=== PATIENT | female | born 1955 | race Caucasian/White ===

== ENCOUNTER 2023-12-09 17:58 | Inpatient (IN) | payer OTHER, SELFPAY ==
[2023-12-09] VITALS (8 sets, daily range): BP systolic 136–168; BP diastolic 74–103; BMI 29.7
[2023-12-09 13:58] LABS: % Basophils 0.6 % (0-2); % Eosinophils 1.5 % (0-6); % Immature Granulocytes 0.3 % (0-0.5); % Lymphocytes 14.5 % (20.5-51.1); % Monocytes 7.8 % (1.7-9.3); % Neutrophils 75.3 % (42.2-75.2); Absolute Basophils 0.1 10^3/uL (0-0.2); Absolute Eosinophils 0.2 10^3/uL (0-0.7); Absolute Lymphocytes 1.5 10^3/uL (1.2-3.4); Absolute Monocytes 0.8 10^3/uL (0.1-0.6); Absolute Neutrophils 7.7 10^3/uL (1.4-6.5); Hemoglobin 14.3 g/dL (12.0-16.0); Mean Corp Hgb Conc. 33.3 g/dL (33.0-37.0); Mean Corpuscular Hgb 31.2 pg (27.0-31.0); Mean Corpuscular Volume 93.7 fL (81.0-99.0); Mean Platelet Volume 10.4 fL (7.4-10.4); Nucleated Red Blood Cells % 0 %; Platelet Count 211 10^3/uL (130-400); Red Blood Cell Count 4.59 10^6/uL (4.20-5.40); Red Cell Dist. Width 13.5 % (11.5-14.5); White Blood Cell Count 10.3 10^3/uL (4.8-10.8)
[2023-12-09 14:14] LABS: ALT (SGPT) 23 U/L (0-35); AST (SGOT) 24 U/L (14-36); Albumin 4.5 g/dl (3.5-5.0); Alkaline Phosphatase 69 U/L (38-126); Blood Urea Nitrogen 23 mg/dl (7-17); Calcium 10.5 mg/dl (8.4-10.2); Carbon Dioxide 27 mmol/L (22-30); Chloride 106 mmol/L (98-107); Glucose 97 mg/dl (70-99); Potassium 4.3 mmol/L (3.5-5.1); Sodium 141 mmol/L (135-145); Total Bilirubin 0.4 mg/dl (0.2-1.3); Total Protein 7.3 g/dl (6.3-8.2); eGFR > 60.00
[2023-12-09 14:30] LABS: NT-proBNP 306 pg/ml; Troponin I 0.158 ng/ml
--- NOTE | 2023-12-09 14:52 | ED.GENMED ---
History of Present Illness
General
Chief Complaint: Breathing Problem
Source: patient and spouse
Exam Limitations: none
Time Seen by Provider: 12/09/23 14:52
Nursing documentation reviewed up to this point in time: agreed with
History of Present Illness
History of Present Illness:
68-year-old female presents emergency room after sudden shortness of breath this afternoon. She is visiting from [place]. She used her inhaler but it did not help. She denies any chest pain.
Past History
Past History
ED Past Medical History: Asthma and Other (Irritable bowel)
ED Past Surgical History: , Orthopedic (Right knee arthroscopic, right rotator cuff) and Other ([place] teeth)
Social History
Tobacco: Non-smoker
Alcohol: None
Drug: None
Personal:
Living: with family
Review of Systems
Review of Systems
Allergies reviewed?: Yes
All Other Systems: Not applicable
Constitutional: Reports no symptoms
EENT: Reports no symptoms
Respiratory: Reports trouble breathing
Cardiac: Reports no symptoms; Denies chest pain
ABD/GI: Reports no symptoms
: Reports no symptoms
Musculoskeletal: Reports no symptoms
Skin: Reports no symptoms
Neurological: Reports no symptoms
Endocrine: Reports no symptoms
Hematologic/Lymphatic: Reports no symptoms
Psychiatric: Reports no symptoms
Phy Exam
Physical Exam
Physical Exam:
Physical Exam
General: Afebrile
Neck: supple. no meningeal signs. normal posterior pharynx
Heart: s1/s2 tachycardia, no murmur. equal radial
pulses.
HEENT: Pupils equal round reactive to light, EOMI
Lungs: no acute respiratory distress. clear bilaterally
Abdomen: normal bowel sounds. not tender. no CVAT
Neuro: alert and oriented. no focal neurological deficits cranial nerves II through XII intact
Skin: no rash
Psychiatric: well kept. interactive and cooperative
Extremities: no edema. no calf tenderness. negative homans. good distal pulses
Scores
Heart Failure Risk
Heart Failure Risk Score: Not Applicable
Course
Orders/Labs/Results
Orders:
Orders
12/09/23 12:46
Electrocardiogram (*1) Urgent
Reason for Study: Shortness of Breath
EKG- Treatment ONCE
12/09/23 13:14
CR Chest - 2 Views Urgent
Comment:
Reason For Exam: SOB
12/09/23 13:45
Complete Blood Count/With Diff Urgent
Comprehensive Metabolic Panel Urgent
NT-proBNP Urgent
Troponin I Urgent
12/09/23 15:21
Cardiac Monitoring- Treatment ONCE
IV Insert/Care/Rem.- Treatment PRN
12/09/23 15:22
CT Chest Pe Study Urgent
Comment:
Reason For Exam: short of breath, troponin mild elevation
12/09/23 15:48
D-Dimer Urgent
PTT Urgent
Comment: PTT ADDED ON 5PM 12-09-23
12/09/23 16:38
Heparin 6,900 units IV NOW STA
Nursing to Place Non Medication Order As Directed
Physician Order: PTT 6 hours after initial start of Heparin infusion
Above order entered?: Yes
12/09/23 16:45
Heparin 97607 Units/250 ml 25,000 units in 250 ml IV PER PROTOCOL
Weight to be used for heparin protocol in kilograms (kg):: 86
Protocol:: DVT/PE
PTT Goal Range to be used:: PTT 73 to 111 seconds
Order type:: Initial
INITIAL Infusion Dose (UNITS/KG/hr) & then follow protocol:: 18 units/kg/hr
Infusion Dose in UNITS/hr & then follow protocol (UNITS/hr):: 1,500
INFUSION RATE in mL/hr & then follow protocol (mL/hr):: 15
For DVT/PE algorithm, re-bolus for low PTT?: Yes
PTT less than or equal to 64 seconds:: Re-bolus 80 units/kg (max 10,000units). Increase by 300 units/hr
(+ 3mL/hr)
PTT 64.1 to 72.9 seconds:: Re-bolus 40 units/kg (max 5,000 units). Increase by 200 units/hr
(+ 2mL/hr)
PTT 73 to 111 seconds:: Target Range. No change in rate.
PTT 111.1 to 130.9 seconds:: Decrease rate by 200 units/hr (- 2 mL/hr)
PTT 131 to 199.9 seconds:: HOLD for 1 hr. Then decrease by 300 units/hr (- 3mL/hr)
PTT greater than or equal to 200 seconds:: HOLD for 2 hrs & Notify Provider. Then decrease by 300 units/hr
(- 3mL/hr)
Lab follow-up:: Each change, PTT q6h until 2 consecutive are therapeutic. Then
PTT daily.
12/09/23 16:58
Add On- LAB Urgent
Tests Added?: PTT
12/09/23 17:25
Admit/Transfer Patient As Directed
Co-Sign Provider:
Level of Care: Inpatient admission
Assign to:: IMU- Intermediate Care
Physician / Group: [facility]
Diagnosis: PE
Reason for Hospitalization: PE
Expected length of stay greater than two midnights?: Yes
ELOS- Estimated Length of Stay in days: 2
I certify the patient meets the requirements for IP care: Yes
PRN Pain Medication Management As Directed
May give lesser potent ordered pain med per pt: Yes
preference::
Protocol:: Medication orders for pain may be administered in a
manner that supports deferring to patient preference
when the pt is:
- Requesting an ordered lesser potent pain medication.
Least to most potent pain medications are defined
as: acetaminophen < NSAID < tramadol < opioids
(morphine, oxycodone, hydromorphone).
- Requesting a lesser dose of the same medication IF
ORDERED.
- Requesting a less intrusive route of administration
if both routes are prescribed by the provider (PO <
IV).
12/09/23 17:26
Code Status As Directed
Resuscitation Status: Full Code
12/09/23 17:31
Heparin 6,900 units IV PRN PRN
12/09/23 17:32
Heparin 3,400 units IV PRN PRN
12/09/23 23:40
PTT Urgent
Comment: Heparin GTT
Abnormal Lab Results
12/09/23 12/09/23
13:45 15:48
MCH 31.2 H pg
(27.0-31.0)
Absolute Neuts (auto) 7.7 H 10^3/uL
(1.4-6.5)
Absolute Monos (auto) 0.8 H 10^3/uL
(0.1-0.6)
Neutrophils % 75.3 H %
(42.2-75.2)
Lymphocytes % 14.5 L %
(20.5-51.1)
D-Dimer 4.68 H ug/mlFEU
(0.00-0.50)
BUN 23 H mg/dl
(7-17)
Calcium 10.5 H mg/dl
(8.4-10.2)
Troponin I 0.158 H* ng/ml
12/09/23 13:45
12/09/23 13:45
Vital Signs
Initial and Last Documented VS:
Initial Vital Signs
Temp Pulse Resp BP Pulse Ox
97.5 F 122 20 168/93 95
12/09/23 12:46 12/09/23 12:46 12/09/23 12:46 12/09/23 12:46 12/09/23 12:46
Last Documented Vital Signs
Temp Pulse Resp BP Pulse Ox
97.5 F 102 26 136/83 98
12/09/23 12:46 12/09/23 19:00 12/09/23 19:00 12/09/23 18:00 12/09/23 19:00
MDM/Problems Addressed
Differential Diagnosis Includes:
Pulmonary embolism, ACS
MDM/Problems Addressed:
68-year-old female with bilateral PE, right heart strain. Vital signs stable. IV heparin given. Admit to hospitalist, ICU. PERT alert called.
Chronic conditions affecting care: Asthma
*Radiology
Radiology exam reviewed: preliminary read by ED provider (CT chest shows bilateral PE)
*Pulse Oximetry
Patient hypoxic: no
*EKG
Interpreted by ED Provider?: Yes
EKG Intrepretation Date: 12/09/23
EKG Intrepretation Time: 12:57
Interpretation: abnormal
Comparison EKG: no comparison EKG present
Heart Rate: 103
Rate: tachycardiac
Rhythm: PVC's and sinus arrhythmia
[place]: normal axis
Interval: normal interval
QRS Pattern: normal QRS
Ischemia: no ischemia
*Medical Oncology Physician Interpretation
Rate: tachycardiac
Interpretation: abnormal
Heart Rate: 105
Rhythm: PVC's and sinus tachycardia
*Critical Care Note
Total Time (30-74mins, 75-104mins- exclusive of procedures): 30
comment:
Critical care statement: A total of 30 minutes of critical care time was provided for this patient. This includes management of unstable vital signs, evaluation of the patient at bedside, reviewing the patient's pertinent medical records, discussion
with consultants, review of old EKGs and review of pertinent medical records. This time with separate from time utilized to perform the aforementioned documented procedures
Data Reviewed
Prescriptions/Medications Considered But Not Given:
Thrombolysis considered, not indicated at this time
Patient Management
Discussion with other providers: Hospitalist and Lap Checker (Pulmonology, Dr. Noe)
Escalation/DeEscalation of care consider admission/obs:
Admit to ICU indicated
ED Attending Note
-
Portions of this chart may have been created with voice recognition software.� Occasional wrong word or��sound alike� substitutions may have occurred due to the inherent limitations of voice recognition software.
Discharge Plan
Departure
Patient Disposition: Admit
Date of Disposition: 12/09/23
Time of Disposition: 17:03
Admit to: ICU
Presentation/result/management discussed w/ accepting MD/DO: Hospitalist
Patient with high blood pressure during this ER visit?: Yes
Condition: Fair
Discharge Problem:
Bilateral pulmonary embolism
Interventions
Interventions:
*Risk Screen - Suicide Last Done: 12/09/23 12:48
*General Assessment Last Done: 12/09/23 16:15
*Neglect/Abuse Screening Last Done: 12/09/23 12:48
*ED COVID-19 Vaccine History Last Done: 12/09/23 16:15
ED- Cardiac Assessment Last Done: 12/09/23 17:50
ED- Pulmonary Assessment Last Done: 12/09/23 17:51
[2023-12-09 16:19] LABS: D-Dimer 4.68 ug/mlFEU (0.00-0.50)
[2023-12-09 17:09] LABS: APTT 26.4 Sec (23.4-35.0)
--- NOTE | 2023-12-09 17:28 | HPS.HSE ---
Family Physician
-
Family Physician: * NONE
Chief Complaint
-
shortness of breath
History of Present Illness
68-year-old female past medical history hiatal hernia, asthma, spinal stenosis, presenting with shortness of breath for the past few days. She was riding her bike and could not write due to shortness of breath. She did feel little bit dizzy.
Denies chest pain or back pain. She felt some cramping in her right leg over the past few days.
Patient is from [place] and recently drove down from there this past . They did stop and take breaks on the journey. She got her COVID vaccination last week. No recent surgeries or COVID infection. No prior history of blood clots.
No family history of blood clots but sister did have a stroke.
She drinks alcohol occasionally. Denies smoking.
Medical History
Past Medical History
Past Medical History: Reports Other (hiatal hernia, asthma, spinal stenosis, )
Past Surgical History: Reports Other (knee surgery, hernia surgery, rotator cuff surgery, C section )
Social History
Tobacco: Non-smoker
Alcohol: None
Drug: None
Family History
Family History: Not pertinent
Allergies / Home Medications
Allergies reflects when Allergies were last updated in [facility].
Home Medications with original date entered in [facility]
Allergy/Medication List:
Allergies
Allergy/AdvReac Type Severity Reaction Status Date / Time
Penicillins Allergy Rash Verified 12/09/23 12:46
Sulfa (Sulfonamide Allergy Swelling Verified 12/09/23 12:46
Antibiotics)
Home Medications
Glucosamine Chondroitin 2 tab PO DAILY 12/09/23
beclomethasone dipropionate 80 mcg/actuation HFA breath activated aerosol (Qvar RediHaler) 2 inh inhalation R BID 12/09/23
calcium 600 mg (as carbonate)-vit D3 20 mcg (800 unit) chewable tablet (Caltrate plus D) 2 tab PO HS 12/09/23
cholecalciferol (vitamin D3) 25 mcg (1,000 unit) tablet 50 mcg PO HS 12/09/23
cyanocobalamin (vitamin B-12) 1,000 mcg tablet 1,000 mcg PO HS 12/09/23
fluticasone propionate 50 mcg/actuation nasal spray,suspension 1 spray intranasal BID 12/09/23
gabapentin 300 mg capsule 300 mg PO HS 12/09/23
hyoscyamine sulfate 0.125 mg sublingual tablet 0.125 mg PO HS 12/09/23
levothyroxine 137 mcg tablet (Synthroid) 137 mcg PO DAILY 12/09/23
omeprazole 40 mg capsule,delayed release 40 mg PO DAILY 12/09/23
Review of Systems
-
History Source: Patient
A 12 point ROS was completed and negative except as noted: Yes
Constitutional: Reports No Symptoms
EENT: Reports No Symptoms
Respiratory: Reports See HPI
Cardiac: Reports No Symptoms
Abdomen/GI: Reports No Symptoms
: Reports No Symptoms
Musculoskeletal: Reports No Symptoms
Skin: Reports No Symptoms
Neurological: Reports No Symptoms
Endocrine: Reports No Symptoms
Hematologic/Lymphatic: Reports No Symptoms
Psych: Reports No Symptoms
Physical Exam
Vital Signs
Vital Signs
Temp Pulse Resp BP Pulse Ox
97.5 F 97 12 151/103 98
12/09/23 12:46 12/09/23 16:00 12/09/23 16:00 12/09/23 14:49 12/09/23 16:00
Physical Exam
General: Well Developed, Well Nourished and No Apparent Distress
HEENT: NormoCephalic, Moist mucous membranes and Atraumatic
Respiratory: Clear
Cardiac: S1/S2 and Regular Rhythm; No Murmur or Rub
GI: Soft, Non Tender, Non Distended and Normal Bowel Sounds; No Organomegaly
Rectal: Deferred by Provider
Musculoskeletal: No Clubbing, No Cyanosis and No Edema
Skin: No Rash
Neuro: Nonfocal/grossly intact
Laboratory Results
-
12/09/23 13:45
12/09/23 13:45
Laboratory Results
APTT Cancelled 12/09/23 16:38
Total Bilirubin 0.4 mg/dl (0.2-1.3) 12/09/23 13:45
AST 24 U/L (14-36) 12/09/23 13:45
ALT 23 U/L (0-35) 12/09/23 13:45
Alkaline Phosphatase 69 U/L (38-126) 12/09/23 13:45
Troponin I 0.158 ng/ml H* 12/09/23 13:45
Data Reviewed
-
Lab Data: Labs Reviewed by me
Old Records: Reviewed
Impression/Plan
-
IMPRESSION:
PLAN:
# Unprovoked bilateral pulmonary embolism
# Troponin elevation likely secondary to right heart strain
-Troponin of 0.158
-EKG shows sinus tachycardia
-No chest pain
-Heparin drip
-Check venous ultrasound
-Check echo
-Pulmonary consulted
-Outpatient hematology workup
Spinal stenosis
-Continue gabapentin
Hiatal hernia/GERD
-Continue omeprazole
Asthma
Hypothyroidism
-Continue levothyroxine
Full code
DVT prophylaxis-heparin drip
Regular diet
[2023-12-09] MEDS: HEPARIN 6900 UNITS IV (17:34)
[2023-12-09] MEDS: HEPARIN 25000 UNITS/250 ML IV (17:37)
[2023-12-09 21:06] LABS: Troponin I 0.486 ng/ml
[2023-12-09] MEDS: VITAMIN D3 (cholecalciferol) 50 MCG PO (22:30)
[2023-12-09] MEDS: LEVSIN 0.125 MG PO (22:30)
[2023-12-09] MEDS: OSCAL CAL 500 500 MG PO (22:30)
[2023-12-09] MEDS: NEURONTIN 300 MG PO (22:30)
[2023-12-09] MEDS: VITAMIN B-12 1000 MCG PO (22:31)
[2023-12-10] VITALS (17 sets, daily range): BP systolic 125–154; BP diastolic 69–96; BMI 27.9
[2023-12-10 01:02] LABS: APTT 183.3 Sec (23.4-35.0)
[2023-12-10 02:53] LABS: Troponin I 0.423 ng/ml
[2023-12-10 06:39] LABS: APTT 121.2 Sec (23.4-35.0)
[2023-12-10 06:47] LABS: % Basophils 0.6 % (0-2); % Immature Granulocytes 0.3 % (0-0.5); % Lymphocytes 42.5 % (20.5-51.1); % Monocytes 8.7 % (1.7-9.3); % Neutrophils 43.9 % (42.2-75.2); ALT (SGPT) 20 U/L (0-35); AST (SGOT) 23 U/L (14-36); Absolute Eosinophils 0.3 10^3/uL (0-0.7); Absolute Lymphocytes 2.8 10^3/uL (1.2-3.4); Absolute Monocytes 0.6 10^3/uL (0.1-0.6); Absolute Neutrophils 2.9 10^3/uL (1.4-6.5); Alkaline Phosphatase 71 U/L (38-126); Blood Urea Nitrogen 14 mg/dl (7-17); Calcium 9.7 mg/dl (8.4-10.2); Carbon Dioxide 24 mmol/L (22-30); Chloride 108 mmol/L (98-107); Estimated Creatinine Clearance 85 ml/min; Glucose 105 mg/dl (70-99); Hematocrit 41.4 % (37.0-47.0); Hemoglobin 13.5 g/dL (12.0-16.0); Mean Corp Hgb Conc. 32.6 g/dL (33.0-37.0); Mean Corpuscular Hgb 30.5 pg (27.0-31.0); Mean Corpuscular Volume 93.5 fL (81.0-99.0); Mean Platelet Volume 10.9 fL (7.4-10.4); Nucleated Red Blood Cells % 0 %; Platelet Count 212 10^3/uL (130-400); Potassium 4.3 mmol/L (3.5-5.1); Red Blood Cell Count 4.43 10^6/uL (4.20-5.40); Red Cell Dist. Width 13.7 % (11.5-14.5); Sodium 142 mmol/L (135-145); Total Bilirubin 0.5 mg/dl (0.2-1.3); Total Protein 6.7 g/dl (6.3-8.2); White Blood Cell Count 6.6 10^3/uL (4.8-10.8); eGFR > 60.00
[2023-12-10] MEDS: SYNTHROID 137 MCG PO (07:08)
[2023-12-10] MEDS: PROTONIX 40 MG PO (07:33)
--- NOTE | 2023-12-10 09:57 | CON.PUL ---
Consultation
Consultation Request
Date/Time Consultation Requested: 12/10/2023-7 AM
Date/Time Consultation Performed: 12/10/2023-7:30 AM
Requesting Provider: Hospitalist
Performing Provider: Dr. Noe
Reason for Consultation: Pulmonary embolism
Medical History
-
Chief Complaint: Shortness of breath
History of Present Illness:
68-year-old female with a history of mild intermittent asthma, spinal stenosis, irritable bowel, hiatal hernia who presented with shortness of breath and noted to have moderate bilateral pulmonary emboli-pulmonary was consulted for pulmonary emboli
12/10/2023. Patient states that she recently drove down from [place] and stopped every 3 hours for a break. She did receive her COVID vaccine booster last week .she states that her had COVID about a week ago and she never turned
positive. Her shortness of breath which is unusual for her actually started 5 days previous when she noticed she was having more shortness of breath while climbing stairs. She was not sedentary, she does not have a previous history of clotting,
hypercoagulable state or family history. She has not had miscarriages. She noticed that she was more short of breath than usual. She is normally very active. She was recently in [facility] and biking 18 miles a day [place] minimally using
her e-bike. She denies any chest pain, pleurisy, and only complains of shortness of breath with exertion. She did not complain of any abdominal pain, nausea, vomiting, leg swelling, however, she did complain of some pulled muscle right calf felt
related to yoga
Past Medical History
Past Medical History: None (Asthma-mild intermittent. Spinal stenosis. Hiatal hernia. Knee surgery. Hernia surgery. Rotator cuff surgery. .)
Social History
Tobacco: Non-smoker
Alcohol: None
Drug: None
Personal:
Living: With Family
Occupational Exposures: No known asbestos exposure
Environmental Exposures: No known tuberculosis exposure
Family History
Family History: Other (No family history of hypercoagulable state)
Allergies / Home Medications
Allergies
Allergy/AdvReac Type Severity Reaction Status Date / Time
Penicillins Allergy Rash Verified 12/09/23 12:46
Sulfa (Sulfonamide Allergy Swelling Verified 12/09/23 12:46
Antibiotics)
Home Medications
�Medication �Instructions �Recorded �Confirmed �Last Taken �Type
Glucosamine Chondroitin 2 tab PO DAILY 12/09/23 12/09/23 12/09/23 History
beclomethasone dipropionate 80 2 inh inhalation R BID 12/09/23 12/09/23 12/09/23 History
mcg/actuation HFA breath activated
aerosol (Qvar RediHaler)
calcium 600 mg (as carbonate)-vit 2 tab PO HS 12/09/23 12/09/23 12/08/23 History
D3 20 mcg (800 unit) chewable
tablet (Caltrate plus D)
cholecalciferol (vitamin D3) 25 50 mcg PO HS 12/09/23 12/09/23 12/08/23 History
mcg (1,000 unit) tablet
cyanocobalamin (vitamin B-12) 1,000 mcg PO HS 12/09/23 12/09/23 12/08/23 History
1,000 mcg tablet
fluticasone propionate 50 1 spray intranasal BID 12/09/23 12/09/23 12/09/23 History
mcg/actuation nasal
spray,suspension
gabapentin 300 mg capsule 300 mg PO HS 12/09/23 12/09/23 12/08/23 History
hyoscyamine sulfate 0.125 mg 0.125 mg PO HS 12/09/23 12/09/23 12/08/23 History
sublingual tablet
levothyroxine 137 mcg tablet 137 mcg PO DAILY 12/09/23 12/09/23 12/09/23 History
(Synthroid)
omeprazole 40 mg capsule,delayed 40 mg PO DAILY 12/09/23 12/09/23 12/09/23 History
release
Review of Systems
-
Unable to Obtain full review of systems at this time due to: Other (Per HPI)
Vitals / Labs / Diagnostic Testing
Vital Signs
Temp Pulse Resp BP Pulse Ox
97.5 F 99 16 145/96 100
12/09/23 12:46 12/10/23 08:45 12/10/23 08:45 12/10/23 08:00 12/10/23 08:45
Lab Data
12/10/23 05:59
12/10/23 05:59
Laboratory Results
12/09/23 12/09/23 12/10/23
15:48 16:38 00:26
APTT 26.4 Cancelled 183.3 H*
12/10/23
05:59
APTT 121.2 H
Diagnostic Testing:
Physical Exam
-
Exam:
Well-nourished and well-developed in no apparent distress
HEENT-atraumatic, normocephalic
Neck-supple, no JVD, no bruit
Heart-regular rate and rhythm-no murmurs, rubs or gallops, no increased P2, no RV heave
Chest-clear to auscultation, no wheezes, crackles
Back-no tenderness
Abdomen-soft, nontender, nondistended, no hepatosplenomegaly
Extremities-no cyanosis, clubbing, edema and good peripheral pulses, negative Homans' sign
Integument-intact, no rashes, lesions or ecchymosis
Neurology-alert and oriented, nonfocal motor and sensory exam
Assessment
-
68-year-old female with a history of mild intermittent asthma, spinal stenosis, irritable bowel, hiatal hernia who presented with shortness of breath and noted to have moderate bilateral pulmonary emboli-pulmonary was consulted for pulmonary emboli
12/10/2023.
Pulmonary embolism-unprovoked bilateral moderate clot burden with some right ventricular strain
PESI-66-low risk
Troponin 0.158, D-dimer 4.68, proBNP 306, heart rate 90s sinus rhythm, no hypotension
DVT-right lower extremity-acute
Conditions present prior to admission:
Asthma-mild intermittent.
Spinal stenosis.
Hiatal hernia.
Knee surgery. Hernia surgery. Rotator cuff surgery. .
Plan
Patient will be admitted to telemetry unit for close observation
Supplemental oxygen as needed
Aspiration precautions
Incentive spirometry
CT chest personally reviewed-summarized below
Check echocardiogram
Lower extremity ultrasound with right lower extremity DVT
Recommend eventual hypercoagulable workup
Full PESI I summarized above
Heparin drip or Lovenox 1 mg/kg every 12 hours
Convert to oral anticoagulant and treat for minimum of 3-6 months
Benefits and risks of thrombolytics therapy were reviewed with patient
Patient has mild tachycardia and no hypotension-currently risks of aggressive thrombolytic therapy outweigh [id number] notified of options, reasons for conservative standard of care therapy and is in agreement
Bedrest �24 hours
DVT prophylaxis-on full anticoagulation
Early nutrition
Early mobilization
Outpatient pulmonary follow-up in [place] recommended-told patient will need hypercoagulable workup as well as repeat imaging-told her to contact radiology department and have images/report burned on disc
Outpatient appropriate malignancy screening
Critical care statement: A total of 55 minutes of critical care time was provided for this patient today. This includes management of unstable vital signs, evaluation for thrombolytic therapy, management of large pulmonary embolism, evaluation of
the patient at bedside, reviewing the patient's pertinent medical records including radiographs, microbiology, laboratory evaluations, and discussion with primary team, consultants, pharmacy, and critical care nursing.
Diagnostic data:
Chest x-ray 12/09/2023-NAD
CT chest 12/09/2023-moderate extensive bilateral pulmonary emboli distal right main pulmonary artery extending into the right upper lobe, right lower lobe and right middle lobe, some right ventricular strain minimal airspace disease in the right
middle lobe
Lower extremity ultrasound 12/09/2023-acute occlusive DVT right peroneal vein
Data Reviewed
-
EKG: Report reviewed by me
Radiology: Image personally visualized and interpreted and Report reviewed by me
CT Scan: Image personally visualized and interpreted and Report reviewed by me
Ultrasound: Report reviewed by me
Medical Tests (Nuc Med, Echo etc): Report reviewed by me
Labs: Labs reviewed by me
Old Records: Reviewed
Total Time Spent with Patient (in minutes): 55
[2023-12-10 12:36] LABS: Troponin I 0.196 ng/ml
[2023-12-10 14:11] LABS: APTT 38.6 Sec (23.4-35.0)
--- NOTE | 2023-12-10 15:51 | W.PN.HOSP.TC ---
Today's Communication/Plan
-
continue full dose Heparin
Assessment / Plan
Assessment / Plan
# Unprovoked bilateral pulmonary embolism
was dx with Covid on 10/23. Pt had runny nose with nasal congestion several days later, but tested negative for Covid herself at that time.
CT scan of chest: There is pulmonary embolism in the distal aspect of the right main pulmonary artery extending into right upper lobe, right lower lobe and right middle lobe branches
There is pulmonary embolism in the distal aspect of the left main pulmonary artery extending into left upper lobe and left lower lobe branches
There is a bandlike area of central embolism extending across the main pulmonary artery.
There is right heart strain with an RV/LV ratio of 4.8/3.8
There is an azygos lobe on the right
There is minimal parenchymal airspace disease in the right middle lobe
The lungs are otherwise clear
# Troponin elevation likely secondary to right heart strain
-Troponin of 0.158
-EKG shows sinus tachycardia
-No chest pain
-Heparin drip
-venous ultrasound: ACUTE OCCLUSIVE DEEP VENOUS THROMBOSIS in the RIGHT PERONEAL VEIN.
-Check echo
-Pulmonary input appreciated
-Outpatient hematology workup when returns to [place]
Spinal stenosis
-Continue gabapentin
Hx of asthma
currently no symptoms
Hiatal hernia/GERD
-Continue omeprazole
Asthma
Hypothyroidism
-Continue levothyroxine
Full code
DVT prophylaxis-heparin drip
transition to Eliquis next 24 hrs
Regular diet
Anticipated Discharge: 24 - 48 hours
Subjective/Interval History
-
Date of Service: December 10, 2023
No sob at rest
Objective Data
-
Labs:
Laboratory Results
12/10/23 12/10/23 12/10/23
05:59 13:39 16:30
WBC 6.6
Hgb 13.5
Hct 41.4
Plt Count 212
APTT 121.2 H 38.6 H Pending
Sodium 142
Potassium 4.3
Chloride 108 H
Carbon Dioxide 24
BUN 14
Creatinine 0.7
Glucose 105 H
Calcium 9.7
Total Bilirubin 0.5
AST 23
ALT 20
Alkaline Phosphatase 71
Vital Signs:
Vital Signs
Temp Pulse Resp BP Pulse Ox
97.5 F 90 16 154/81 97
12/09/23 12:46 12/10/23 15:30 12/10/23 15:30 12/10/23 14:00 12/10/23 15:30
Review of Systems
-
History Source: Patient and Coordinated Provider
Constitutional: Denies Fever
EENT: Reports No Symptoms Reported
Respiratory: Reports Trouble Breathing (with exertion)
Cardiac: Reports No Symptoms; Denies Chest Pain
Abdomen/GI: Reports No Symptoms
Genitourinary: Reports No Symptoms
Physical Exam
-
General: Well Developed, Well Nourished and No Apparent Distress
HEENT: Normocephalic, Atraumatic and Moist Mucous Membranes
Respiratory: Clear to Auscultation (mild splinting) and Rales (atelectatic rales on deep inspiration); Negative Wheezes or Rhonchi
Cardiac: Regular Rhythm and S1/S2
GI: Soft, Nontender and Nondistended
Musculoskeletal: No Clubbing, No Cyanosis and No Edema
Skin: Dry
--- NOTE | 2023-12-10 15:54 | PTCARENOTE ---
Pt's 1340 PTT came back at 38.6. RN in room to talk to pt. Pt's IV Pump alarmed a lot in the past 6 hours. RN educated pt on the need to tell Nursing the pump is alarming because it means the Heparin is not infusing. Pt was unaware that's what
the alarm meant. RN spoke to Mar and Pharmacy regarding above issue. MD and Pharmacy agreed to keep Heparin at current rate and redraw PTT 3 hours from the last level and run the protocol off of that result. Pt explained on all above. Will
continue to monitor.
[2023-12-10 17:02] LABS: APTT 75.4 Sec (23.4-35.0)
[2023-12-10] MEDS: HEPARIN 25000 UNITS/250 ML IV (17:23)
--- NOTE | 2023-12-10 19:00 | EDRN ---
Report received, introduced myself to patient, gave patient meal tray, resting comfortably with call andrade in reach at this time, at bedside
--- NOTE | 2023-12-10 20:13 | EDRN ---
Patient completed her meal, respiratory here to do her inhaler.
--- NOTE | 2023-12-10 21:40 | PTCARENOTE ---
Rec'd pt from ER via stretcher, hep gtt at 1000units/hr, oriented x 3, amb to bed, CHG bath done, SR, bp stable, + pulses, denies pain, RA, lungs clear, sat 97, + bowel sounds, no bm, abd soft, no n/v, voided in ER before she came up
--- NOTE | 2023-12-10 21:46 | EDRN ---
Report called to BRYCE Brandon in ICU
[2023-12-10] MEDS: OSCAL CAL 500 500 MG PO (22:16)
[2023-12-10] MEDS: VITAMIN D3 (cholecalciferol) 50 MCG PO (22:16)
[2023-12-10] MEDS: NEURONTIN 300 MG PO (22:16)
[2023-12-10] MEDS: VITAMIN B-12 1000 MCG PO (22:16)
[2023-12-10 22:41] LABS: APTT 45.5 Sec (23.4-35.0)
[2023-12-10 22:52] LABS: Blood Urea Nitrogen 18 mg/dl (7-17); Calcium 9.5 mg/dl (8.4-10.2); Carbon Dioxide 24 mmol/L (22-30); Chloride 107 mmol/L (98-107); Estimated Creatinine Clearance 67 ml/min; Glucose 111 mg/dl (70-99); Potassium 4.4 mmol/L (3.5-5.1); Sodium 140 mmol/L (135-145); eGFR > 60.00
[2023-12-10] MEDS: HEPARIN 6900 UNITS IV (23:06)
--- NOTE | 2023-12-10 23:10 | PTCARENOTE ---
ptt 45.5, bolused per order & hep gtt incr to 1300 units per protocal
[2023-12-10] MEDS: LEVSIN 0.125 MG PO (23:53)
[2023-12-11] VITALS: BP 133/79
[2023-12-11 01:00] VITALS: BP 128/76
[2023-12-11 02:00] VITALS: BP 125/68
[2023-12-11 03:00] VITALS: BP 133/77
[2023-12-11 04:00] VITALS: BP 129/79
[2023-12-11 04:58] VITALS: BMI 27.8
[2023-12-11 05:11] LABS: Hematocrit 41.5 % (37.0-47.0); Hemoglobin 13.9 g/dL (12.0-16.0); Mean Corp Hgb Conc. 33.5 g/dL (33.0-37.0); Mean Corpuscular Hgb 31.7 pg (27.0-31.0); Mean Corpuscular Volume 94.5 fL (81.0-99.0); Mean Platelet Volume 10.7 fL (7.4-10.4); Platelet Count 200 10^3/uL (130-400); Red Blood Cell Count 4.39 10^6/uL (4.20-5.40); Red Cell Dist. Width 13.5 % (11.5-14.5); White Blood Cell Count 6.2 10^3/uL (4.8-10.8)
[2023-12-11] MEDS: SYNTHROID 137 MCG PO (05:19)
--- NOTE | 2023-12-11 05:50 | PTCARENOTE ---
PTT > 200, heparin off per protocal for 2 hr, Marycruz Trinidad, [employer]UTIONS ARCHITECT aware
[2023-12-11 05:51] LABS: APTT > 200 Sec (23.4-35.0)
[2023-12-11] MEDS: PROTONIX 40 MG PO (07:42)
--- NOTE | 2023-12-11 07:45 | W.PN.HOSP.TC ---
Addendum entered and electronically signed by Dayna Alexis MD 12/11/23 17:28:
I saw and evaluated the patient independently. I reviewed the resident�s note and agree with findings and plan as documented by Dr. Payne.
GENERAL: well developed, well nourished, female in no apparent distress
HEENT: NC/AT--no O2 requirements
HEART: regular rate and rhythm, +S1, +S2
LUNGS : clear to auscultation bilaterally
ABDOM: soft, nontender, nondistended, + bowel sounds
EXT: no cyanosis, clubbing, or edema
NEUROLOGIC: grossly intact
Bilateral pulmonary embolism with DVT in right peroneal vein--likely provoked by recent travel from [place] but pt says she had symptoms in retrospect of SOB and calf pain (thinking she pulled a muscle)--heparin drip transitioned to
Eliquis--some troponin leak from mild right heart strain--ECHO with dilated and hypocontractile right ventricle--did not qualify for lytic therapy- Dr. Payne will fax DC summary to PCP Dr. Milana Avelar. Patient plans to call tomorrow or following
day to schedule appointment.
Elevated troponin--due to nonischemic myocardial injury--due to bilateral PE--downtrending troponin--
Shortness of breath on admission- resolved--due to PE most likely but pt does have asthma history--SOB began prior to recent travel--Continue home inhalers as prior to admission. Continue PE management as above.
Spinal stenosis-Continue home gabapentin
Hiatal hernia/GERD--Continue omeprazole
Hypothyroidism--Continue levothyroxine
dvt proph--heparin drip to Eliquis
Code status-- Full code
Original Note:
Today's Communication/Plan
-
Transition from heparin to eliquis, stable for discharge home today pending echo results
Assessment / Plan
Assessment / Plan
68yo F with PMH of asthma who presented to ED 12/09/23 for shortness of breath. She recently drove from [place] to visit family in [place]; she drove 4 hour segment, then took a break for lunch/overnight stay, then drove 2.5 hour segment. Prior to travel, she
reports some exertional dyspnea while packing for trip. Her asthma inhaler did not relieve symptoms. She also notes Covid exposure at beginning of October with several days of nasal congestion, but her covid test was negative.
A/P:
Bilateral pulmonary embolism
Venous thrombosis of right peroneal vein
- Chest CT significant for bilateral PE, venous US significant for acute VTE of R peroneal vein
- Unclear if this was provoked VTE secondary to recent travel vs unprovoked VTE.
- Has been on heparin infusion. Will transition to eliquis 10mg BID x1 week followed by 5mg BID. Will send script on discharge to local [place] pharmacy. Reviewed plan with patient and importance of following up with PCP for medication refills in [place].
- Case management consulted regarding eliquis pricing for patient.
- VSS, no tachychardia. Asymptomatic. Stable for discharge home with outpatient PCP and outpatient hematology follow up when patient returns home to [place].
- Reviewed ambulation recommendations and taking breaks from driving to walk and stretch.
- I will fax DC summary to PCP Dr. Milana Avelar. Patient plans to call tomorrow or following day to schedule appointment.
Elevated troponin
- Troponin downtrended from 0.48 on admission --> 0.42 --> 0.19
- EKG with sinus tachycardia initially
- No chest pain. Shortness of breath resolving
- Suspect elevated troponin was from right heart strain secondary to bilateral PE
- Will obtain echo today
Shortness of breath on admission- resolved
History of asthma
- SOB began prior to recent travel. Unclear etiology- may be related to PE vs asthma vs seasonal allergies.
- Continue home inhalers as prior to admission. Continue PE management as above.
Spinal stenosis
-Continue home gabapentin
Hiatal hernia/GERD
-Continue omeprazole
Hypothyroidism
-Continue levothyroxine
Code status: Full
VTE ppx: Ambulation as tolerated, transition from heparin to eliquis
Diet: Regular
Dispo planning: Anticipate home today pending echo results
Anticipated Discharge: Today
Subjective/Interval History
-
Date of Service: December 11, 2023
No acute events overnight. Only complaint is poor sleep quality in hospital. The shortness of breath she experienced prior to admission has resolved. She denies lightheadedness, dizziness, chest pain, shortness of breath, nausea, vomiting, diarrhea,
constipation. Last BM yesterday, no black or bloody stools. She is tolerating PO diet, no difficulty/pain with swallowing. She is ambulating without assistance as she was prior to admission. She feels well overall and hopes to be discharged today.
Objective Data
-
Labs:
Laboratory Results
12/10/23 12/11/23 12/11/23
22:22 04:58 14:00
WBC 6.2
Hgb 13.9
Hct 41.5
Plt Count 200
PT 13.0
INR 1.00
APTT 45.5 H > 200 H* Pending
Sodium 140
Potassium 4.4
Chloride 107
Carbon Dioxide 24
BUN 18 H
Creatinine 0.9
Glucose 111 H
Calcium 9.5
Vital Signs:
Vital Signs
Temp Pulse Resp BP Pulse Ox
98 F 75 15 129/79 94
12/10/23 22:00 12/11/23 04:00 12/11/23 04:00 12/11/23 04:00 12/11/23 03:56
I&O
12/10/23 12/11/23 12/12/23
06:59 06:59 06:59
Intake Total 1621 / 1621
Balance 1621 / 1621
Review of Systems
-
History Source: Patient
All other systems: Not reviewed unless documented
Physical Exam
-
General: Well Developed, Well Nourished, No Apparent Distress, Comfortable and Conversant
HEENT: Normocephalic and Atraumatic
Respiratory: Clear to Auscultation and Non Labored Respirations; Negative Wheezes
Cardiac: Regular Rhythm and S1/S2
GI: Soft, Nontender, Nondistended and Normal Bowel Sounds
Musculoskeletal: Edema, Right Lower Extrem (mild nonpitting edema just proximal to ankle on right side)
Skin: Warm and Dry
Neuro: Awake, Alert, Oriented and Nonfocal/Grossly Intact
Psych: Calm and Intact Judgement/Insight
Data Reviewed
-
Diagnostic Radiology: Image personally visualized and interpreted and Report Reviewed by me
CT Scan: Image personally visualized and interpreted and Report Reviewed by me
Ultrasound: Report Reviewed by me
Labs: Labs Reviewed by me and Discussed with Physician
--- NOTE | 2023-12-11 08:28 | W.PN.INTV ---
Today's Communication / Plan
Recommendations
Systemic anticoagulation with heparin drip with transition to NOAC today preferably with Eliquis
Case management assistance to assure that Eliquis is affordable
Outpatient hematology consultation for hypercoagulable workup
Repeat echo in 4 to 6 weeks to follow-up improvement of RV function/size
I advised to the patient to do no strenuous activity over the next 4 weeks and slowly increase activity as tolerated
Patient is being prepared for discharge home today. No additional pulmonary recommendations at this time. Hat Block Maker/Pulmonary service will now sign off. Please reconsult if there are any additional questions/concerns, or if patient's
respiratory status deteriorates.
Assessment
-
68-year-old female with a history of mild intermittent asthma, spinal stenosis, irritable bowel, hiatal hernia who presented with shortness of breath and noted to have moderate bilateral pulmonary emboli-pulmonary was consulted for pulmonary emboli
12/10/2023.
Impression:
Submassive bilateral pulmonary embolism-unprovoked with moderate clot burden with mild right ventricular strain with elevated biomarkers (PESI-66-low risk)
Dilated, hypocontractile RV with moderate pulmonary hypertension (due to acute PE)
Elevated troponin due to above, representing type II ME due to demand ischemia
Distal RLE acute DVT
Left Ashraf's cyst
Conditions present prior to admission:
Asthma-mild intermittent.
Spinal stenosis.
Hiatal hernia.
Knee surgery. Hernia surgery. Rotator cuff surgery. .
Plan
Patient is doing remarkably well and is continuing to improve while on heparin drip
Transition to NOAC today assuming that it is affordable, which will be assisted by case management
Echo performed today shows a dilated, hypocontractile RV and moderate pulm hypertension with PASP: 47 mmHg. This should be repeated in about 4-6 weeks to follow to resolution/show improvement
Keep SpO2 >90-94%
Incentive spirometry encouraged
Outpatient hematology evaluation for hypercoagulable workup
Patient says that she had the COVID-19 vaccine about 11 days ago although she has had multiple COVID-19 shots with no complications thus far, so it is unclear if this is related to her recent immunization
CTA chest personally reviewed-summarized below
Lower extremity ultrasound with right lower extremity distal DVT
Full PESI I summarized above
Benefits and risks of thrombolytics therapy were reviewed with patient
Patient has mild tachycardia and no hypotension- risks of aggressive thrombolytic therapy outweigh benefits- patient notified of options, reasons for conservative standard of care therapy and is in agreement
Now that she has been hospitalized for >24 hours, it is safe for her to get up OOB
DVT prophylaxis-heparin gtt
Early nutrition
Early mobilization
Outpatient pulmonary follow-up in [place] recommended-told patient will need hypercoagulable workup as well as repeat imaging-told her to contact radiology department and have images/report burned on disc
Outpatient appropriate malignancy screening
Patient is being prepared for discharge home today. No additional pulmonary recommendations at this time. Pulmonary service will now sign off. Thank you for allowing us to be involved in the care of this patient. Please reconsult if there are
any additional questions/concerns, or if patient's respiratory status deteriorates.
Diagnostic data:
Chest x-ray 12/09/2023-NAD
CT chest 12/09/2023-moderate extensive bilateral pulmonary emboli distal right main pulmonary artery extending into the right upper lobe, right lower lobe and right middle lobe, some right ventricular strain minimal airspace disease in the right
middle lobe
Lower extremity ultrasound 12/09/2023-acute occlusive DVT right peroneal vein
Total time spent today was 56 minutes for this encounter. Time includes reviewing laboratory test/imaging results, reviewing pertinent medical records, obtaining and reviewing medical history, performing an appropriate exam, ordering medications,
tests and procedures. Time also includes documentation of this encounter, coordinating patient care and communicating with other healthcare professionals. Total time does not include separately billed tests performed on this date of service.
Subjective Dataa
Subjective Data
Date of Service:
Date of Service: December 11, 2023
Chief Complaint: Pulmonary Follow Up and VTE Follow Up
Subjective:
Patient was seen and evaluated today at bedside. Her , Rafael, as well as friend are at bedside. She is currently on room air breathing comfortably, saturating 97%. Currently on heparin drip. Heart rate 81 and BP 132/67. She feels well
and is eager to go home which is in [place].
Review of Systems
General: Other (Negative unless mentioned above)
Objective Data
Data Reviewed
Vital Signs / I&O / Oxygen:
Vital Signs
Temp Pulse Resp BP Pulse Ox
97.7 F 76 28 129/79 98
12/11/23 08:09 12/11/23 07:53 12/11/23 07:53 12/11/23 04:00 12/11/23 07:53
Intake and Output
12/10/23 12/11/23 12/12/23
06:59 06:59 06:59
Intake Total 1621 / 1621
Balance 1621 / 1621
SaO2 98
Physical Exam
General: Respiratory Distress (negative), Comfortable, Chills (negative) and Sweats (negative)
HEENT: Normocephalic and Anicteric
Cardiovascular: S1-S2, Murmur (negative) and Peripheral Edema (Trace lower extremity pitting edema bilaterally (L >R))
Respiratory: Clear, Wheeze (negative), Crackles (negative), Rhonchi (negative), Non-Labored Respirations and Stridor (negative)
GI: Soft, Non Distended, Non Tender and Normal Bowel Sounds
Neurology: AO x 3 and Tremors (negative)
Skin: Warm, Dry, Cyanosis (negative) and Jaundice (negative)
Labs/Micro/Reports
Lab Data
12/11/23 04:58
12/10/23 22:22
Laboratory Results
12/10/23 12/10/23 12/10/23
13:39 16:39 22:22
PT 13.0
INR 1.00
APTT 38.6 H 75.4 H 45.5 H
12/11/23
04:58
PT
INR
APTT > 200 H*
--- NOTE | 2023-12-11 10:04 | CM ---
CM following re: discharge planning.
Reviewed pt's chart, met with pt.
Pt is a 68 year old female, admitted with primary dx of PE.
Pt reports she lives with in a 2SH, 3 steps to enter in [place], here in [place] visiting her sister in [place]. Pt reports she has 3 supportive children. 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 No DME, VN or SNF
history. Pt stated she will stay with her sister for a day or two and will return back with her to their house in [place].
Eliquis 5 mg BID palmer checked with [facility] Leon[facility] [phone]. Pt's pharmacy ID: [id number].
30 days - $25.00
90 days - $50.00
Pt is aware, stated it's affordable. 30 days free coupon for Eliquis provided to the pt.
According to pt most likely will be discharged today. IMM reviewed, placed on chart, pt has a copy.
PCP: Milana Turner, [place]
Pharmacy: [facility] temporarily while pt is here. Regular pharmacy: [facility].
D/C plan: home no needs. to transport.
--- NOTE | 2023-12-11 13:46 | PTCARENOTE ---
Pt received in bed @ 0700. AAOx3. Stating 03/01 pain in upper left back, states she thinks its from sleeping on it strange. SaO2 97% on room air. Sinus rhythm on store protection specialist. +1 pitting B/L LE edema. Heparin gtt infusing @ 1000 units/hr. Next
PTT due @ 14:00. ECHO completed at bedside. Appropriate appetite. Voiding in bathroom with minimal assist x1.
[2023-12-11 14:33] LABS: APTT 52.8 Sec (23.4-35.0)
[2023-12-11] MEDS: HEPARIN 6900 UNITS IV (14:49)
[2023-12-11] MEDS: ELIQUIS 10 MG PO (16:43)
--- NOTE | 2023-12-11 17:55 | PTCARENOTE ---
Discharge instructions reviewed with patient and her at bedside. Eliquis administered and Heparin gtt shut off. Pt stated to take next dose of Eliquis @ 05:30 tomorrow morning. IV sites removed. Pt escorted to husbands car by wheelchair.
--- NOTE | 2023-12-11 20:53 | W.DCSUMMARY ---
Addendum entered and electronically signed by Dayna Alexis MD 12/11/23 21:27:
Read, reviewed, and agree. See same day progress note for additional details. Time spent coordinating care, DC planning, review of DC plan of care with resident, transition of care, review of records in EMR, med rec, consults, notes, d/w
consultants, nursing, family, and CM is less than 30 minutes. Pt will need at least 6-9 months of treatment for her DVT and PE with thought of repeating echocardiogram in 3 months.
Original Note:
Discharge Summary
Discharge Data
Date of Admission: 12/09/23
Date of Discharge: 12/11/23
Total time spent discharging patient (in min): < 30 min
-
Pending Results: No
Hospital Course
Discharging Physician : Dr. Payne, Dr. Alexis
Disposition : Home
Primary care physician : Dr. Milana Avelar
Principal Discharge diagnosis : bilateral pulmonary embolism, acute occlusive deep vein thrombosis in right peroneal vein, elevated troponin, right heart strain
Chronic Discharge diagnosis : spinal stenosis, hiatal hernia, GERD, hypothyroidism, asthma
Hospital Course : Patient presented to ED 12/09/23 for shortness of breath. She recently had long car drive from [place] to [place] (broken up into 2 segments: 4 hours, 2.5 hours), though notes exertional dyspnea began a few days prior to travel and was not
relieved by asthma inhalers. This admission, she was diagnosed with bilateral pulmonary embolism and venous thrombosis of right peroneal vein; unclear if this was provoked or unprovoked. She was treated with heparin infusion, then transitioned to
eliquis. She symptomatically improved and her shortness of breath resolved. She had elevated troponins this admission, which downtrended and were thought to be secondary to right heart strain from bilateral PE rather than ischemic etiology given her
reassuring EKG. Results of echocardiogram as below. On day of discharge she was stable. She was discharged with prescriptions for eliquis to complete 7 day course of 10mg twice daily, followed by at least 1 month of 5mg twice daily. She will follow
up with her PCP when she returns to [place] for further eliquis refills/management, possible workup of VTE or referral to dyeing machine tender, repeat echocardiogram.
Important imaging findings :
2 view chest xray 12/09/23
FINDINGS:
Frontal and lateral radiographs of the chest were obtained.
The cardiac silhouette and pulmonary vasculature are radiographically within normal limits.
There are no acute mediastinal abnormalities.
There are no acute pleural or parenchymal abnormalities.
IMPRESSION:
No active cardiopulmonary disease.
CT chest PE study 12/09/23
FINDINGS: There is pulmonary embolism in the distal aspect of the right main pulmonary artery extending into right upper lobe, right lower lobe and right middle lobe branches
There is pulmonary embolism in the distal aspect of the left main pulmonary artery extending into left upper lobe and left lower lobe branches
There is a bandlike area of central embolism extending across the main pulmonary artery.
There is right heart strain with an RV/LV ratio of 4.8/3.8
There is an azygos lobe on the right
There is minimal parenchymal airspace disease in the right middle lobe
The lungs are otherwise clear
IMPRESSION:
Moderately extensive bilateral pulmonary emboli as detailed above with associated right heart strain
Minimal parenchymal airspace disease in the right middle lobe
Peripheral venous US bilateral lower extremities 12/10/23
FINDINGS:
RIGHT LOWER EXTREMITY: The right common femoral, femoral, popliteal, and posterior tibial veins are patent without sonographic evidence for deep venous thrombosis. There is occlusive acute deep venous thrombosis in the right peroneal vein.
LEFT LOWER EXTREMITY: The left common femoral, femoral, popliteal, posterior tibial, and peroneal veins are patent without sonographic evidence for deep venous thrombosis. There is a large 7.0 x 2.1 x 3.4 cm Ashraf's cyst cysts in the left popliteal
fossa.
IMPRESSION:
1. ACUTE OCCLUSIVE DEEP VENOUS THROMBOSIS in the RIGHT PERONEAL VEIN.
2. Large 7.0 cm Ashraf's cyst in the left popliteal fossa.
Chest xray 12/11/23
FINDINGS: A single frontal radiograph of the chest was obtained at 11:02 PM on 12/10/2023.
The cardiac silhouette and pulmonary vasculature are radiographically within normal limits.
There are no acute mediastinal abnormalities.
There is an azygos lobe on the right
There are no acute pleural or parenchymal abnormalities.
IMPRESSION:
No active cardiopulmonary disease.
Echocardiogram 12/11/23
CONCLUSIONS
Normal left ventricular size, wall thickness and systolic function. No regional
wall motion abnormalities are seen. LV ejection fraction is 60-65%.
Dilated, hypocontractile right ventricle.
Mild mitral regurgitation.
Mild tricuspid regurgitation. Estimated pulmonary artery pressure of 47 mmHg
No prior study available for comparison.
Procedure findings : N/A
Discharge Plan
-
Patient Disposition: Home (Routine Discharge)
Discharge Diagnosis/Procedures: bilateral pulmonary embolism, elevated troponin, right heart strain, acute occlusive deep vein thrombosis in right peroneal vein
Condition: Good
Diet: Regular
Activity: No restrictions
Additional Activity: Stop driving every 2 hours to walk around
Driving Restrictions: As prior to admission
Bathing Restrictions: None
Instructions: Deep vein thrombosis - Discharge instructions, Pulmonary embolism - Discharge instructions
Referrals:
NONE,* [Family Provider] - in less than 1 week (Follow up with your Primary Care Provider within 1 week of hospital discharge. Consider following up with dyeing machine tender and repeating echocardiogram in about 3 months. )
Additional Discharge Medication Instructions: New Medications:
Take 10mg eliquis twice a day for 1 week. Then take 5mg eliquis twice a day. You will be on this medication for a few months. It is very important to follow up with your primary care provider and establish care with a dyeing machine tender for further
evaluation and medication changes.
Prescriptions:
New
Eliquis 5 mg tablet
10 mg PO BID 7 Days Qty: 28 0RF
Rx Instructions:
Take 2 tablets (10mg) twice per day for 1 week (12/10-12/17)
Eliquis 5 mg tablet
5 mg PO BID 30 Days Qty: 60 0RF
Rx Instructions:
Take 1 tab (5mg) twice per day starting 12/19/23. Ask your PCP for refills
Continued
levothyroxine [Synthroid] 137 mcg tablet
137 mcg PO DAILY
cyanocobalamin (vitamin B-12) 1,000 mcg Tablet
1,000 mcg PO HS
omeprazole 40 mg capsule,delayed release(DR/EC)
40 mg PO DAILY
hyoscyamine sulfate 0.125 mg tablet, sublingual
0.125 mg PO HS
gabapentin 300 mg capsule
300 mg PO HS
fluticasone propionate 50 mcg/actuation spray,suspension
1 spray INTRANASAL BID
cholecalciferol (vitamin D3) 25 mcg (1,000 unit) Tablet
50 mcg PO HS
Caltrate 600 plus D 600 mg-20 mcg (800 unit) Tablet,Chewable
2 tab PO HS
Qvar RediHaler 80 mcg/actuation HFA aerosol breath activated
2 inh INHALATION R BID
Glucosamine Chondroitin 1,500 mg tablet
2 tab PO DAILY
Discharge Orders:
Discharge Patient (As Directed); Ordered 12/11/23
Ordered By: Keesha Payne
Discharge Date and Time
Discharge Date/Time: 12/11/23 16:56
Print Language: YAKUT
--- NOTE | 2023-12-12 10:44 | PN.CDI ---
Addendum entered and electronically signed by Dayna Alexis MD 12/12/23 13:22:
documentation is complete
Original Note:
CDI
- -
CDI:
Physician Documentation Request
Admit Date: 12/09/23 17:58
Dear Doctor Kerry,
Patient admitted with bilateral pulmonary embolism with DVT.
CT chest impression states ' Moderately extensive bilateral pulmonary emboli as detailed above with associated right heart strain'
12/10 Echo conclusion states 'Estimated pulmonary artery pressure of 47 mmHg. Dilated, hypocontractile right ventricle'
Please further specify the pulmonary embolism:
with cor pulmonale
without cor pulmonale
Other
Use of terms such as suspected, likely, concern for, or probable (associated with a specific diagnosis that is being evaluated, monitored, or treated as if it exists) are acceptable and can be coded in the inpatient setting, when documented at the
time of discharge.
Thank you,
Lary Crane RN, BSN
CDI Specialist
tiger text
Please use your independent medical judgment in providing your response.
== END 2023-12-11 16:56 | disposition home or self-care (01) | DRG 176 ==
LOC: ICU 17:58
PROVIDERS: Emergency Medicine; Internal Medicine; Student in an Organized Health Care Education/Training Program; ADMITTING PHYSICIAN Hospitalist; ATTENDING PHYSICIAN Internal Medicine; CONSULT PHYSICIAN Internal Medicine Critical Care Medicine; EMERGENCY PHYSICIAN Emergency Medicine
DX: I26.99 Other pulmonary embolism without acute cor pulmonale (principal); I82.451 Acute embolism and thrombosis of right peroneal vein; I5A Non-ischemic myocardial injury (non-traumatic); J45.20 Mild intermittent asthma, uncomplicated; Z79.01 Long term (current) use of anticoagulants; E03.9 Hypothyroidism, unspecified
CPT/HCPCS: 71045; 71046; 71275; 80048; 80053; 83880; 84484; 85025; 85027; 85379; 85610; 85730; 93005; 93306; 93970; 94640; 96365; 96366; 99291; Q9967